=== PATIENT | female | born 1965 | race Caucasian/White ===

== ENCOUNTER → 2017-04-26 | Outpatient (CLI) | payer MEDICAID ==
[~2017-04-26] MED LIST: ASPIRIN 81MG TA81 MG PO; ESTRACE 2MG. TAB2 MG PO; FLONASE 50 MCG16 GM; KEFLEX 500MG.500 MG PO; LEVOTHYROXIN0.075 M1 PO; LISINOPRIL PO; LISINOPRIL/HCTZ1 TA3 PO; LISINOPRIL10 MG PO; PERCOCET 5/3251 EACH PO; SYNTHROID 0.1M0.1 MG PO; TRAZODONE100 MG PO; ZOLPIDEM 10MG T10 MG PO; [UNRECOGNIZED DRUG - REMARK] PO
--- NOTE | 2017-04-30 21:11 | RADIOLOGY REPORT PS360 ---
DIG MAMM-SCREEN ERIC W/CAD CAD Screening COMPARISON: Digital mammograms 12/22/2012 and 12/20/2011 INDICATION: There is no personal or family history of breast cancer TECHNIQUE: Standard CC and MLO images were obtained. R2 CAD reviewed. FINDINGS: Scattered fibroglandular densities are seen in both breasts. There is no suspicious lesion in either breast and no suspicious microcalcifications. There is a moderate-sized calcified node in the left axilla which was noted and this is stable. IMPRESSION: Fibrofatty parenchyma with no suspicious lesion seen recommend yearly follow-up BI-RADS CATEGORY: 1_Negative RECOMMENDED FOLLOWUP: 12M 12 MONTH FOLLOW-UP (A letter has been sent to the patient regarding results of the study.)
== END ==
LOC: RAD 04-18 09:30
DX: Z12.31 Encounter for screening mammogram for malignant neoplasm of breast (principal)
CPT/HCPCS: G0202